=== PATIENT | male | born 2000 | race Hispanic/Latino ===

== ENCOUNTER 2025-08-20 20:36 | Emergency (ER) | payer BC ==
[~2025-08-20] VITALS: Ht 162.6 cm; Wt 74.8 kg
[2025-08-20 21:37] VITALS: TEMP 98.7
[2025-08-20 22:03] LABS: BASOPHILS % 0.2 % (0.0-1.0); EOSINOPHILS % 0.3 % (0.0-6.0); LYMPHOCYTES % 22.0 % (18.0-39.1); MONOCYTES % 10.6 % (4.4-11.3); NEUTROPHILS % 66.7 % (38.7-80.0); RED CELL DISTRIBUTION WIDTH 11.4 % (11.7-14.4)
[2025-08-20] MEDS: SODIUM CHLORIDE 0.9% 1000ML 1,000 ML IV ONE (22:14)
[2025-08-20 22:17] LABS: EST GLOMERULAR FILTRATION RATE 112.0 ML/MIN (>=60)
[2025-08-20 22:43] LABS: EPITHELIAL CELLS,URINE FEW /LPF; LEUKOCYTE ESTERASE ,URINE NEGATIVE (NEGATIVE); PROTEIN,URINE DIPSTICK NEGATIVE (NEGATIVE); URINE UROBILINOGEN 0.2 mg/dL (0.2 - 1)
[2025-08-20 23:30] VITALS: PULSE 80; RESP 20; O2SAT 98
== END 2025-08-20 23:32 | disposition home or self-care (01) ==
LOC: ER 22:20
DX: T67.5XXA Heat exhaustion, unspecified, initial encounter (principal); M62.82 Rhabdomyolysis; E86.0 Dehydration
CPT/HCPCS: 36415; 80053; 81001; 82550; 83690; 84484; 85025; 99284